=== PATIENT | male | born 1965 | race Caucasian/White ===

== ENCOUNTER → 2016-05-21 | Outpatient (CLI) | payer OTHER | LOC: MW.RT 19:33 | CPT/HCPCS: 95811 ==

== ENCOUNTER 2017-01-14 15:51 | Emergency (ER) | payer OTHER ==
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
[2017-01-14] MEDS ORDERED: LORazepam 2 MG/ML MDV IVPUSH ONE (16:32)
[2017-01-14 16:43] LABS: CHLORIDE,CL 107 mmol/L (98-110); SODIUM,NA 141 mmol/L (136-146)
[2017-01-14] MEDS ORDERED: Ketorolac 30 MG/ML SDV IVPUSH ONE (16:56)
[2017-01-14 17:56] VITALS: BP 159/116
== END 2017-01-14 17:52 | disposition home or self-care (01) ==
LOC: MW.ED 15:51
DX: F41.9 Anxiety disorder, unspecified (principal); M94.0 Chondrocostal junction syndrome [Tietze]; Z79.899 Other long term (current) drug therapy
CPT/HCPCS: 36415; 80053; 82150; 83690; 84484; 85025; 93005; 96374; 96375; 99285; J1885; J2060; 99283

== ENCOUNTER 2017-08-18 00:16 | Emergency (ER) | payer OTHER ==
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
[2017-08-18 01:04] LABS: CHLORIDE,CL 108 mmol/L (98-107); SODIUM,NA 144 mmol/L (136-148)
[2017-08-18 02:47] VITALS: BP 147/109
[2017-08-18] MEDS ORDERED: Lactated Ringers 1,000 ML IV SCH (03:15)
[2017-08-18] MEDS ORDERED: Sodium Chloride 0.9% 1,000 ML IV SCH (03:15)
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
== END 2017-08-18 03:30 | disposition other institution (70) ==
LOC: MW.ED 00:16
DX: S06.5X9A Traumatic subdural hemorrhage with loss of consciousness of unspecified duration, initial encounter (principal); S02.2XXA Fracture of nasal bones, initial encounter for closed fracture; S00.03XA Contusion of scalp, initial encounter; E03.9 Hypothyroidism, unspecified; Z79.899 Other long term (current) drug therapy; Y04.0XXA Assault by unarmed brawl or fight, initial encounter
CPT/HCPCS: 36415; 70450; 70486; 72125; 80053; 80305; 85025; 96365; 99285; G0480; J7120